=== PATIENT | female | born 1980 ===

== ENCOUNTER → 2017-05-29 | Outpatient (CLI) | payer OTHER | END | disposition home or self-care (01) | LOC: C.PAPS 18:01 | PROVIDERS: ATTEND Obstetrics & Gynecology | DX: Z12.4 Encounter for screening for malignant neoplasm of cervix (principal) ==

== ENCOUNTER → 2017-06-22 | Outpatient (CLI) | payer OTHER ==
[2017-06-22 10:12] LABS: BLOOD UREA NITROGEN 14 mg/dl (7-18); CALCIUM 8.5 mg/dl (8.5-10.1); CARBON DIOXIDE 27 mmol/L (21-32); CHOLESTEROL 136 mg/dl (0-200); CREATININE 0.83 mg/dl (0.60-1.20); GLUCOSE 89 mg/dl (70-99); GLUCOSE,FASTING 89 mg/dl (70-99); POTASSIUM 3.7 mmol/L (3.5-5.1); SODIUM 141 mmol/L (136-145)
[2017-06-22 10:21] LABS: LUTEINIZING HORMONE 2.45 IU/L
[2017-06-22 10:22] LABS: FOLLICLE STIMULAT HORMONE 6.89 IU/L; LDL CHOLESTEROL CALCULATED 86 mg/dl
== END | disposition home or self-care (01) ==
LOC: C.LAB1850 08:42
PROVIDERS: ATTEND Obstetrics & Gynecology
DX: L68.0 Hirsutism (principal); Z31.69 Encounter for other general counseling and advice on procreation; Z87.42 Personal history of other diseases of the female genital tract; Z13.220 Encounter for screening for lipoid disorders; F41.8 Other specified anxiety disorders; E66.9 Obesity, unspecified

== ENCOUNTER → 2017-09-20 | Outpatient (CLI) | payer OTHER | END | disposition home or self-care (01) | LOC: C.LABBFT 09:03 | PROVIDERS: ATTEND Nurse Practitioner Adult Health | DX: E03.9 Hypothyroidism, unspecified (principal) ==